=== PATIENT | female | born 1955 | race Caucasian/White ===

== ENCOUNTER 2020-12-09 18:13 | Observation (INO) | payer OTHER ==
[2020-12-09] MEDS ORDERED: HYDROmorphone 0.5 MG/0.5 ML Syringe IV ONE (18:53)
[2020-12-09] MEDS ORDERED: HYDROmorphone 1 MG/ML Syringe IVPUSH ONE ×3 (20:11→22:39)
--- NOTE | 2020-12-09 21:39 | EDM.PDOC ---
ED HPI GENERAL MEDICAL PROBLEM - General Stated Complaint: HIP PAIN Time Seen by Provider: 12/09/20 18:13 Source of Information: Reports: Patient History Limitations: Reports: No Limitations - History of Present Illness INITIAL COMMENTS - FREE TEXT/NARRATIVE: Pt. presents to ER with complaints of R hip pain. Pt. states that she tripped and fell after stepping on a drain at [facility], landing on her R side. Denies striking her head. Pt. complains of severe pain despite receiving IV pain medication by EMS. Pt. denies any chest pain, shortness of breath, or lightheadedness prior to the fall. She is unable to straighten the extremity and was unable to bear weight on the extremity. Pt. denies any numbness/tingling in the distal portion of the extremity. Pt. is currently undergoing treatment for pneumonia (is on doxycycline and prednisone). 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 Onset: Today Onset Date: 12/09/20 Location: Reports: Lower Extremity, Right Quality: Reports: Throbbing Severity: Severe Right hip Pain Score (Numeric/FACES): 5 - Related Data Allergies Allergy/AdvReac Type Severity Reaction Status Date / Time amoxicillin [From Augmentin] AdvReac Nausea Verified 12/09/20 22:11 clavulanic acid AdvReac Nausea Verified 12/09/20 22:11 [From Augmentin] tiotropium AdvReac Vomiting Verified 12/09/20 22:11 [From Spiriva with HandiHaler] Home Meds: Home Meds Multivitamin [Multi-Vitamin Daily] 1 each PO DAILY 12/31/15 [History] Sertraline HCl 100 mg PO DAILY 12/31/15 [History] Montelukast [Singulair] 10 mg PO BEDTIME tablet 01/01/16 [Rx] Omeprazole 20 mg PO DAILY@0700 cap.cr 01/01/16 [Rx] buPROPion [Wellbutrin XL] 300 mg PO DAILY tab.er 01/01/16 [Rx] Budesonide/Formoterol [Symbicort 160-4.5 MCG] 2 puff INH BID 05/12/16 [History] Fluticasone Propionate [Flonase Allergy Relief] 1 spray NASBOTH BID 05/12/16 [History] Acetaminophen 650 mg PO Q4H PRN 06/06/19 [History] Albuterol/Ipratropium [DuoNeb 3.0-0.5 MG/3 ML] 3 ml INH Q6H PRN 06/06/19 [History] Cyclobenzaprine [Flexeril] 5 mg PO TID PRN 06/06/19 [History] Past Medical History HEENT History: Reports: Allergic Rhinitis, Other (See Below) Other HEENT History: eustachian tube dysfunction. parlyzed left vocal chord Cardiovascular History: Respiratory History: Reports: Asthma, COPD, Sleep Apnea, Other (See Below) Other Respiratory History: pulmonary nodule left lung Gastrointestinal History: Reports: GERD, Other (See Below) Other Gastrointestinal History: fm hx colon ca Genitourinary History: Reports: None, Other (See Below) Other Genitourinary History: suspension bladder [employer] History: Reports: , Other (See Below) Other [employer] History: atypical squamous cells of cytologic smear of cervix Musculoskeletal History: Reports: Osteoporosis, Other (See Below) Other Musculoskeletal History: left shoulder pain. rt hip pain Neurological History: Reports: None Psychiatric History: Reports: Depression, Other (See Below) Endocrine/Metabolic History: Reports: None Hematologic History: Reports: None Immunologic History: Reports: None Oncologic (Cancer) History: Reports: Lung Dermatologic History: Reports: Eczema, Other (See Below) Other Dermatologic History: dermatophytosis of nail. dyschromia - Past Surgical History Head Surgeries/Procedures: Reports: None HEENT Surgical History: Reports: Naso-Sinus Surgery, Other (See Below) Other HEENT Surgeries/Procedures: teeth extraction Cardiovascular Surgical History: Reports: None Respiratory Surgical History: Reports: Thoracotomy, Other (See Below) Other Respiratory Surgeries/Procedures: lobectomy. thoracoscopy. bronchoscopy GI Surgical History: Reports: Colonoscopy, Other (See Below) Other GI Surgeries/Procedures: hemorrhoids. abdominoplasty. mammoplasty Female Surgical History: Reports: Tubal Ligation Other Female Surgeries/Procedures: reversed and then tubal again Endocrine Surgical History: Reports: None Musculoskeletal Surgical History: Reports: None Oncologic Surgical History: Reports: Lobectomy Social & Family History - Caffeine Use Caffeine Use: Reports: Coffee ED ROS GENERAL - Review of Systems Review Of Systems: See Below Constitutional: Reports: No Symptoms HEENT: Reports: No Symptoms Respiratory: Reports: No Symptoms Cardiovascular: Reports: No Symptoms Endocrine: Reports: No Symptoms GI/Abdominal: Reports: No Symptoms : Reports: No Symptoms Musculoskeletal: Reports: Joint Pain Skin: Reports: No Symptoms Neurological: Reports: No Symptoms Psychiatric: Reports: No Symptoms Hematologic/Lymphatic: Reports: No Symptoms Immunologic: Reports: No Symptoms ED EXAM, GENERAL - Physical Exam Exam: See Below Exam Limited By: No Limitations General Appearance: Alert, WD/WN, No Apparent Distress Head: Atraumatic, Normocephalic Neck: Normal Inspection, Supple, Non-Tender, Full Range of Motion Respiratory/Chest: No Respiratory Distress, Lungs Clear, Normal Breath Sounds, No Accessory Muscle Use, Chest Non-Tender Cardiovascular: Normal Peripheral Pulses, Regular Rate, Rhythm, No Edema, No Gallop, No JVD, No Murmur, No Rub Peripheral Pulses: 4+: Posterior Tibial (L), Posterior Tibial (R) GI/Abdominal: Soft, No Distention (Female) Exam: Deferred Rectal (Female) Exam: Deferred Back Exam: Normal Inspection, Full Range of Motion Extremities: Other (R lateral hip pain, unable to straighten the joint. CMS intact.) Neurological: Alert, Oriented, CN II-XII Intact, Normal Cognition, Normal Gait Psychiatric: Normal Affect, Normal Mood Skin Exam: Warm, Dry, Intact, Normal Color, No Rash Lymphatic: No Adenopathy Course - Vital Signs Last Recorded V/S: Last Vital Signs Temp 36.6 C 12/09/20 19:00 Pulse 77 12/09/20 19:00 Resp 16 12/09/20 19:00 BP 133/84 12/09/20 19:00 Pulse Ox 94 L 12/09/20 19:00 - Orders/Labs/Meds Orders: Active Orders 24 hr Category Date Time Status Patient Status [ADT] Routine ADT 12/09/20 22:10 Active Hip Min 2V or 3V Rt [CR] Stat Exams 12/09/20 18:53 Taken CBC WITH AUTO DIFF [HEME] Stat Lab 12/09/20 22:20 Received COMPREHENSIVE METABOLIC PN,CMP [CHEM] Stat Lab 12/09/20 22:20 Received CORONAVIRUS COVID-19 RAPID [MOLEC] Stat Lab 12/09/20 22:23 Received INR,PT,PROTHROMBIN TIME [COAG] Stat Lab 12/09/20 22:20 Received Meds: Medications Discontinued Medications Generic Name Dose Route Start Last Admin Trade Name Jo PRN Reason Stop Dose Admin Hydromorphone HCl 0.5 mg 12/09/20 18:53 12/09/20 19:08 Hydromorphone 0.5 Mg/0.5 Ml Syringe IV 12/09/20 18:54 0.5 mg ONETIME ONE Administration Hydromorphone HCl 1 mg 12/09/20 20:11 12/09/20 20:18 Hydromorphone 1 Mg/Ml Syringe IVPUSH 12/09/20 20:12 1 mg ONETIME ONE Administration Hydromorphone HCl 1 mg 12/09/20 21:22 12/09/20 21:27 Hydromorphone 1 Mg/Ml Syringe IVPUSH 12/09/20 21:23 1 mg ONETIME ONE Administration - Radiology Interpretation Free Text/Narrative:: R intertrochanteric hip fracture. Departure - Departure Time of Disposition: 21:44 Disposition: Refer to Observation Clinical Impression: Intertrochanteric fracture, hip - Discharge Information Sepsis Event Note (ED) - Focused Exam Vital Signs: Vital Signs Temp Pulse Resp BP Pulse Ox 12/09/20 19:00 36.6 C 77 16 133/84 94 L - Problem List Review Problem List Initiated/Reviewed/Updated: Yes - My Orders Last 24 Hours: My Active Orders 12/09/20 18:53 Hip Min 2V or 3V Rt [CR] Stat 12/09/20 22:10 Patient Status [ADT] Routine 12/09/20 22:20 CBC WITH AUTO DIFF [HEME] Stat COMPREHENSIVE METABOLIC PN,CMP [CHEM] Stat INR,PT,PROTHROMBIN TIME [COAG] Stat 12/09/20 22:23 CORONAVIRUS COVID-19 RAPID [MOLEC] Stat - Assessment/Plan Last 24 Hours: My Active Orders 12/09/20 18:53 Hip Min 2V or 3V Rt [CR] Stat 12/09/20 22:10 Patient Status [ADT] Routine 12/09/20 22:20 CBC WITH AUTO DIFF [HEME] Stat COMPREHENSIVE METABOLIC PN,CMP [CHEM] Stat INR,PT,PROTHROMBIN TIME [COAG] Stat 12/09/20 22:23 CORONAVIRUS COVID-19 RAPID [MOLEC] Stat Plan: Pt. is requesting to be transferred to [facility] but they were not willing to accept her in transfer due to her complex medical history. Subsequently contacted [facility] who accepted the patient. They are full now and will take her tomorrow. We will start her on scheduled IV dilaudid with PRN doses. Pt. is a code 1. Will keep her NPO after midnight.
[2020-12-09 22:48] LABS: ANION GAP 10.8 mmol/L (5-15)
[2020-12-10] MEDS: HYDROmorphone 0.5 MG/0.5 ML Syringe IV PRN ×2 (05:29→07:45)
--- NOTE | 2020-12-10 07:35 | CR ---
[id number] RAD/RAD Hip Right 2-3V EXAM: RAD Hip Right 2-3V INDICATION: FALL, RIGHT HIP PAIN COMPARISON: None. DISCUSSION: Acute displaced and angulated intertrochanteric right hip fracture. Moderate osteoarthritis of the right hip. No other osseous abnormality is identified. Evaluation is somewhat limited by patient positioning. IMPRESSION: 1. Acute displaced and angulated intertrochanteric right hip fracture. Jose Andre MD 12/10/20 0734 Thank you for allowing us to participate in the care of your patient.
[2020-12-10 07:47] VITALS: PULSE 88
[2020-12-10] MEDS ORDERED: HYDROmorphone 1 MG/ML Syringe IV PRN (08:30)
[2020-12-10] MEDS ORDERED: Sodium Chloride 0.9% 1,000 ML IV SCH (08:45)
[2020-12-10 11:15] VITALS: BP 126/69
== END 2020-12-10 11:20 | disposition short-term general hospital (02) ==
LOC: VM.ED 18:13 → VM.MS 22:10
PROVIDERS: ADMIT Physician Assistant; ATTEND Physician Assistant
DX: M25.551 Pain in right hip (principal); J44.9 Chronic obstructive pulmonary disease, unspecified; G47.30 Sleep apnea, unspecified; W19.XXXA Unspecified fall, initial encounter; Z88.1 Allergy status to other antibiotic agents; Z88.8 Allergy status to other drugs, medicaments and biological substances; Z79.899 Other long term (current) drug therapy; Z20.822 Contact with and (suspected) exposure to COVID-19
CPT/HCPCS: 36415; 51702; 73502; 80053; 85025; 85610; 87635; 96374; 96376; 99285; G0378; J1170; J7030; U0002